=== PATIENT | male | born 1955 | race African-American/Black ===

== ENCOUNTER 2020-07-14 10:01 | Emergency (ER) | payer MEDICARE, OTHER ==
[2020-07-14] MEDS ORDERED: Aspirin Chewable 81 MG TAB ONE (10:18)
[2020-07-14 10:35] LABS: #Lymphocytes 1.5 thou/uL (1.20-3.40); #Monocytes 0.4 thou/uL (0.11-0.59); #Neutrophils 1.2 thou/uL (1.40-6.50); %Basophils 1.3 % (0.0-1.0); %Lymphocytes 47.6 % (21.0-51.0); %Monocytes 11.6 % (0.0-10.0); %Neutrophils 38.4 % (42.0-75.0); Hemoglobin 14.6 g/dL (14.0-18.0); Mean Corpuscular Hemoglobin 36.6 pg (27.0-31.0); Mean Platelet Volume 6.2 fL (7.4-10.4); Platelet Count 221 thou/uL (130-400); RBC Distribution Width 12.5 % (11.5-14.5)
[2020-07-14 10:48] LABS: ALT (SGPT) 12 U/L (8-55); AST (SGOT) 22 U/L (5-34); Albumin 4.3 g/dL (3.4-4.8); Alkaline Phosphatase 79 U/L (40-110); Anion Gap 21 mmol/L (10-20); BUN (Urea Nitrogen) 36 mg/dL (8.4-25.7); Bilirubin, Total 0.5 mg/dL (0.2-1.2); Calc. Creatinine Clearance 0 mL/min (70-130); Calcium 7.7 mg/dL (7.8-10.44); Carbon Dioxide 18 mmol/L (23-31); Chloride 105 mmol/L (98-107); Glucose 90 mg/dL (80-115); Potassium 4.4 mmol/L (3.5-5.1); Protein, Total 8.3 g/dL (5.8-8.1); Sodium 140 mmol/L (136-145)
[2020-07-14 10:51] LABS: Anisocytosis MODERATE=16-30 cells (100X) (0-5/hpf); MDiff Complete? YES; Platelet Clumps SLIGHT; Platelet Morphology Comment Appears Adequate
[2020-07-14 11:53] LABS: Prothrombin Time 13.5 sec (12.0-14.7)
== END 2020-07-14 12:04 | disposition home or self-care (01) ==
LOC: BURERS 10:01
DX: R07.2 Precordial pain (principal); I25.2 Old myocardial infarction; E03.9 Hypothyroidism, unspecified; J44.9 Chronic obstructive pulmonary disease, unspecified; F17.210 Nicotine dependence, cigarettes, uncomplicated; Z79.899 Other long term (current) drug therapy; Z79.82 Long term (current) use of aspirin; Z86.73 Personal history of transient ischemic attack (TIA), and cerebral infarction without residual deficits
CPT/HCPCS: 36415; 71045; 80053; 83880; 84484; 85025; 85610; 93005